=== PATIENT | female | born 1935 | race Caucasian/White ===

== ENCOUNTER 2018-01-12 10:36 | Outpatient (CLI) | payer MEDICARE ==
--- NOTE | 2018-01-12 15:17 | PET ---
NUCLEAR MEDICINE PET SCAN BRAIN WITH ATTENUATION CORRECTION CT: Date: 01/12/18 HISTORY: 82-year-old female with dementia. FINDINGS: There is photopenic defect at the inferior aspect of the left cerebellar hemisphere corresponding to the region of encephalomalacia and gliosis, representing an old infarction of moderate size, which ca n be seen on an older CT of 05/22/16. There is decreased metabolism in the precuneus, anterior cingulate gyrus, frontal cortex, anterior te mporal lobe, and posterior temporoparietal cortex, bilaterally. There is preservation of metabolism i n the occipital cortex, primary sensorimotor strip, and putamen, bilaterally. There is uptake in the posterior cingulate gyrus. The uptake in the left caudate nucleus is asymmetrically slightly decrease d compared to the right. The overall pattern is not classic for Alzheimer's disease, dementia with Lewy bodies, or frontotempo ral dementia. However, the relatively better preserved metabolic activity in the posterior cingulate gyrus compared to the decreased uptake in the anterior cingulate gyrus, is a feature that is seen in frontotemporal dementia, and not the other two. IMPRESSION: 1. frontotemporal dementia is slightly favored. 2. 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 POS: PAUL
== END 2018-01-12 10:37 | disposition home or self-care (01) ==
LOC: PET 10:36
PROVIDERS: ATTEND Psychiatry & Neurology Neurology
DX: G30.9 Alzheimer's disease, unspecified (principal); F02.80 Dementia in other diseases classified elsewhere, unspecified severity, without behavioral disturbance, psychotic disturbance, mood disturbance, and anxiety; Z86.73 Personal history of transient ischemic attack (TIA), and cerebral infarction without residual deficits
CPT/HCPCS: 78608; A9552